=== PATIENT | male | born 1940 | race African-American/Black ===

== ENCOUNTER 2023-09-20 16:41 | Emergency (ER) | payer OTHER ==
[2023-09-20 16:56] VITALS: RESP 18; TEMP 98; BMI 21.6
[2023-09-20 18:49] LABS: BASO % 1.2 % (0-2.0); EOS % 0.6 % (0-4.5); HEMATOCRIT 44.7 % (35.4-49); HEMOGLOBIN 13.9 GM/dL (11.7-16.9); LYMPH % 36.9 % (8-40); MCH 23.9 pg (25.7-33.7); MCHC 31.2 g/dl (32.0-35.9); MEAN CELL VOLUME 76.7 fl (80-96); MEAN PLT VOLUME 8.4 fl (7.5-11.1); MONO % 8.1 % (3.8-10.2); NEUT % 53.2 % (42.8-82.8); PLATELET COUNT 346 10^3/uL (134-434); RBC 5.83 M/mm3 (4.00-5.60); RDW 17.4 % (11.9-15.9); WHITE BLOOD COUNT 6.5 K/mm3 (4.0-10.0)
[2023-09-20 19:04] LABS: CHLORIDE 108 mmol/L (98-107); POTASSIUM 4.5 mmol/L (3.5-5.1); SODIUM 143 mmol/L (136-145)
[2023-09-20 19:05] LABS: INR 1.24 (0.83-1.09); PROTHROMBIN TIME (PATIENT) 14.3 SEC (9.7-13.0)
[2023-09-20 19:06] LABS: ANION GAP 5 mmol/L (4-13); BLOOD UREA NITROGEN 16.9 mg/dL (7-18); CALCIUM 9.9 mg/dL (8.5-10.1); CO2 30 mmol/L (21-32); GLUCOSE,RANDOM 87 mg/dL (74-106)
[2023-09-20 19:07] LABS: ACTIVATED PTT 32.7 SECONDS (25.2-36.5); ALBUMIN 3.5 g/dl (3.4-5.0)
[2023-09-20 19:08] LABS: SGPT/ALT 37 U/L (13-61)
[2023-09-20 19:10] LABS: CREATININE 0.9 mg/dL (0.55-1.3); SGOT/AST 29 U/L (15-37)
[2023-09-20 19:11] LABS: BILIRUBIN,TOTAL 0.4 mg/dL (0.2-1); TOT PROT 7.6 g/dl (6.4-8.2)
[2023-09-20 19:12] LABS: ALK PHOS 81 U/L (45-117)
[2023-09-20 19:14] LABS: N-TERMINAL BNP 130.4 pg/ml (5-450)
[2023-09-20 20:52] VITALS: BP 145/73; PULSE 46
[2023-09-20 21:23] LABS: EPI CELLS 2 /uL (0-25.1); HYALINE CASTS 1 /uL (0-3.1); PH,URINE 5.5 (5.0-8.0); URINE APPEARANCE CLEAR; URINE BACTERIA 3067 /uL (0-1359); URINE BILIRUBIN NEGATIVE (NEGATIVE); URINE COLOR YELLOW; URINE GLUCOSE (UA) 3+ (NEGATIVE); URINE KETONE NEGATIVE (NEGATIVE); URINE LEUK ESTERASE 1+ (NEGATIVE); URINE NITRITE NEGATIVE (NEGATIVE); URINE PROTEIN NEGATIVE (NEGATIVE); URINE UROBILINOGEN 0.2 mg/dL (0.2-1.0); URINE WBC 1732 /uL (0-25.8)
[2023-09-20] MEDS ORDERED: CLINDAMYCIN HCL 150 MG CAPSULE (FP) ONE (22:26)
[2023-09-20] MEDS: CLINDAMYCIN HCL 150 MG CAPSULE (FP) PO ONE (22:35)
[2023-09-21] LABS: URINE RBC 106.2 /uL (0-23.9)
== END 2023-09-20 22:37 | disposition home or self-care (01) ==
LOC: JER 16:41
DX: L03.113 Cellulitis of right upper limb (principal); M79.601 Pain in right arm; R22.31 Localized swelling, mass and lump, right upper limb; L53.9 Erythematous condition, unspecified; R00.1 Bradycardia, unspecified; Z20.822 Contact with and (suspected) exposure to COVID-19
CPT/HCPCS: 0241U-QW; 36415; 71045-TC-FY; 73060-TC-RT-FY; 73090-TC-RT-FY; 80053; 81003; 83605; 83880; 84484; 85025; 85610; 85730; 86140; 87086; 87186; 93005; 93010; 93971; 99285-25